=== PATIENT | female | born 1970 | race Two or more races ===

== ENCOUNTER 2024-07-28 09:47 | Inpatient (IN) | payer MEDICAID, OTHER ==
[~2024-07-28] VITALS: Ht 149.9 cm; Wt 60.9 kg
--- NOTE | 2024-07-28 10:07 | ED.PDOC ---
GI ASSESSMENT HPI Comments A 54 YEAR OLD FEMALE PRESENTS TO THE ED WITH COMPLAINT OF EPIGASTRIC PAIN. PATIENT STATES SHE HAS BEEN EXPERIENCING EPIGASTRIC PAIN OFF AND ON FOR THE PAST 1 YEAR WITH HER PAIN WITH NAUSEA RETURNING TODAY. PATIENT DENIES FEVER, CHILLS, SHORTNESS OF BREATH, CHEST PAIN, VOMITING, HEADACHE, OR OTHER COMPLAINTS. NO OTHER SYMPTOMS OR MODIFYING FACTORS AT THIS TIME. PATIENT IS ALERT, ORIENTED X 4, AND HAS STEADY GAIT. Chief Complaint: Abdominal Pain Time Seen by MD: 10:01 Reviewed Notes: Nurses Notes, Medications, Allergies Allergies: Coded Allergies: NO KNOWN ALLERGIES (Unverified , 07/28/24) Information Source: Patient Mode of Arrival: Ambulatory Timing: Months Duration: Intermittent Prehospital treatment: None Quality: Aching, Cramping Vomitus: None Stool: Normal Severity: Moderate Recent: None Recent Hx of: None Pain Location: Epigastric Modifying Factors: Nothing Associated sign and symptoms: Nausea, Abdominal Pain Past Medical History PAST MEDICAL HISTORY: Denies Surgical History: Denies all surgeries RN HEMODIALYSIS CHARGE History: No Pertinent RN HEMODIALYSIS CHARGE History Family History Family History: Reviewed,noncontributory to illness Social History Smoker: Non-Smoker Alcohol: Denies ETOH Use Drugs: Denies Drug Use Lives In: Home Constitutional: denies: chills, diaphoresis, fatigue, fever, malaise, sweats, weakness, others EENTM: denies: blurred vision, double vision, ear bleeding, ear discharge, ear drainage, ear pain, ear ringing, eye pain, eye redness, hearing loss, mouth pain, mouth swelling, nasal discharge, nose bleeding, nose congestion, nose pain, photophobia, tearing, throat pain, throat swelling, voice changes, others Respiratory: denies: cough, hemoptysis, orthopnea, SOB at rest, shortness of breath, SOB with excertion, stridor, wheezing, others Cardiovascular: denies: chest pain, dizzy spells, diaphoresis, Dyspnea on exertion, edema, irregular heart beat, left arm pain, lightheadedness, palpitations, PND, syncope, others Gastrointestinal: reports: abdominal pain (EPIGASTRIC PAIN), nausea; denies: abdomen distended, blood streaked bowels, constipated, diarrhea, dysphagia, difficulty swallowing, hematemesis, melena, poor appetite, poor fluid intake, rectal bleeding, rectal pain, vomiting, others Genitourinary: denies: abnormal vagina bleeding, burning, dyspareunia, dysuria, flank pain, frequency, hematuria, incontinence, pain, , vagina discharge, urgency, others Neurological: denies: dizziness, fainting, headache, left sided numbness, left sided weakness, numbness, paresthesia, pre-existing deficit, right sided numbness, right sided weakness, seizure, speech problems, tingling, tremors, weakness, others Musculoskeletal: denies: back pain, gout, joint pain, joint swelling, muscle pain, muscle stiffness, neck pain, others Integumetry: denies: bruises, change in color, change in hair/nails, dryness, laceration, lesions, lumps, rash, wounds, others Allergic/Immunocompromised: denies: Difficulty Healing, Frequent Infections, Hives, Itching, others Hematologic/Lymphatic: denies: anemia, blood clots, easy bleeding, easy bruising, swollen glands, others Endocrine: denies: excessive hunger, excessive sweating, excessive thirst, excessive urination, flushing, intolerance to cold, intolerance to heat, u nexplained weight gain, unexplained weight loss, others Psychiatric: denies: anxiety, bipolar disorder, depression, hopeless, panic disorder, schizophrenia, sleepless, suicidal, others All Other Systems: Reviewed and Negative Physical Exam General Appearance: Mild Distress, Normal, Other (ANXIETY ) HEENT: Normal ENT Inspection, PERRL/EOMI, Pharynx Normal, TMs Normal Neck: Full Range of Motion, Non-Tender, Normal, Normal Inspection Respiratory: Chest Non-Tender, Lungs Clear, No Accessory Muscle Use, No Respiratory Distress, Normal Breath Sounds Cardiovascular: No Edema, No JVD, No Murmur, No Gallop, Normal Peripheral Pulses, Regular Rate/Rhythm Breast Exam: Deferred Gastrointestinal: Epigastric, Guarding, No Organomegaly, No Pulsatile Mass, Normal Bowel Sounds, Soft, Tenderness (TENDERNESS ON EPIGASTRIC WITH GUARDING, NO REBOUND TENDERNESS. 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 Was a procedure done?: No GI differential Dx Differential Diagnosis: Cholecystitis, Constipation, Gastritis/PUD, Hepatitis, Pancreatitis, UTI X-Ray, Labs, Meds, VS Vital Signs Date Time Temp Pulse Resp B/P (MAP) Pulse Ox O2 Delivery O2 Flow Rate FiO2 07/28/24 12:20 75 18 162/58 07/28/24 12:20 74 18 97 07/28/24 11:23 98.2 75 20 162/58 (92) 99 98.2 07/28/24 11:23 75 20 99 Room Air 07/28/24 10:05 66 07/28/24 10:02 97.4 68 20 112/85 (94) 100 Lab Test 07/28/24 10:10 07/28/24 10:06 Range/Units White Blood Count 8.4 4.4-10.8 10^3/uL Red Blood Count 4.52 4.0-5.20 10^6/uL Hemoglobin 13.5 12.2-16.2 g/dL Hematocrit 40.4 36.0-46.0 % Mean Corpuscular Volume 89.4 80.0-100.0 fL Mean Corpuscular Hemoglobin 29.8 28.0-32.0 pg Mean Corpuscular Hemoglobin Concent 33.4 32.0-36.0 g/dL Red Cell Distribution Width 14.4 H 11.8-14.3 % Platelet Count 235 140-450 10^3/uL Mean Platelet Volume 8.8 6.9-10.8 fL Neutrophils (%) (Auto) 76.2 37.0-80.0 % Lymphocytes (%) (Auto) 19.2 10.0-50.0 % Monocytes (%) (Auto) 3.7 0.0-12.0 % Eosinophils (%) (Auto) 0.3 0.0-7.0 % Basophils (%) (Auto) 0.6 0.0-2.0 % Neutrophils # (Auto) 6.4 1.6-8.6 10 ^3/uL Lymphocytes # (Auto) 1.6 0.4-5.4 10 ^3/uL Monocytes # (Auto) 0.3 0-1.3 10 ^3/uL Eosinophils # (Auto) 0 0-0.8 10 ^3/uL Basophils # (Auto) 0 0-0.2 10 ^3/uL Nucleated Red Blood Cells 0.2 % Sodium Level 139 136-145 mmol/L Potassium Level 3.8 3.5-5.1 mmol/L Chloride Level 105 98-107 mmol/L Carbon Dioxide Level 21 20-31 mmol/L Anion Gap 13 5-15 Blood Urea Nitrogen 10 9-23 mg/dL Creatinine 0.63 0.550-1.02 mg/dL Glomerular Filtration Rate Calc 105 >90 mL/min BUN/Creatinine Ratio 15.9 10.0-20.0 Serum Glucose 147 H 74-106 mg/dL Calcium Level 10.0 8.7-10.4 mg/dL Total Bilirubin 0.4 0.2-1.0 mg/dL Aspartate Amino Transferase (AST) 37 13-40 U/L Alanine Aminotransferase (ALT) 25 7-40 U/L Alkaline Phosphatase 101 46-116 U/L Total Protein 7.4 5.7-8.2 g/dL Albumin 4.8 3.2-4.8 g/dL Lipase 43 12-53 U/L Beta HCG, Quantitative 4.1 1.5-4.2 mIU/mL Urine Color Light-yellow Yellow Urine Clarity Clear Clear Urine pH 7.5 5.0-9.0 Urine Specific [place] 1.019 1.001-1.035 Urine Protein Trace H Negative Urine Ketones Negative Negative Urine Blood Negative Negative /uL Urine Nitrite Negative Negative Urine Bilirubin Negative Negative Urine Urobilinogen Normal Negative mg/dL Urine Leukocyte Esterase Negative Negative /uL Urine RBC 1 0 - 4 /hpf Urine WBC 2 0 - 5 /hpf Urine Squamous Epithelial Cells Few <5 /hpf Urine Bacteria None seen None Seen /hpf Urine Glucose Normal Normal mg/dL Current Medications Medications (Trade) Dose Ordered Sig/Carissa Route Start Time Stop Time Status Last Admin Sodium Chloride 1,000 ml @ 1,000 mls/hr Q1H ONCE IV 07/28/24 11:15 07/28/24 12:14 DC 07/28/24 11:12 ULTRASOUND ABDOMEN LIMITED INDICATION: epigastric pain TECHNIQUE: Multiple real-time sonographic images of the abdomen were obtained. COMPARISON: None FINDINGS: The visualized liver parenchyma appears homogenous . The liver measures 16.1 cm. No discrete hepatic lesion or intrahepatic biliary ductal dilatation is identified. There is a 1.3 cm gallstone seen within the gallbladder neck. There is a 7.2 cm heterogeneous and mildly echogenic nodular structure filling the gallbladder. This may represent inspissated gallbladder sludge versus mass. There is no significant gallbladder wall thickening or pericholecystic fluid. The common kathy t measures 8 mm. The right kidney measures 9.9 cm length. No sonographic evidence of nephrolithiasis or hydronephrosis. Visualized portions of the pancreas appears within normal limits. IMPRESSION: 1. 7.2 cm heterogeneous mildly echogenic nodular structure filling the gallbladder. This may represent inspissated gallbladder sludge versus mass. Further evaluation with CT or MRI abdomen with contrast is recommended. 2. 1.3 cm gallstone in the gallbladder neck. The common duct is mildly prominent measuring 8 mm. HS:Y ATED BY: GERSON LORENZO MD DICTATED DATE/TIME: 07/28/241053 SIGNED BY: GERSON LORENZO MD SIGNED DATE/TIME: 07/28/241053 CC: X-Ray, Labs, Meds, VS Comment LABS ORDERED: CBC, CMP, LIPASE, UA REVIEWED AND INTERPRETED RESULTS: NORMAL IMAGING ORDERED US ABDOMEN INDEPENDENT HISTORIANS: NONE TREATMENTS ORDERED: NS 1 L IV, ZOFRAN 4 MG IV, MORPHINE 2 MG IV PATIENT'S CASE AND RESULTS HAVE BEEN DISCUSSED WITH THE ED ATTENDING PHYSICIAN AND THEY AGREE WITH MY PLAN OF CARE. I HAVE DISCUSSED IMAGING AND LAB RESULTS WITH PATIENT AND HAVE INFORMED HER THAT BASED ON HER IMAGING RESULTS AND PERSISTENT PAIN SHE WILL NEED TO BE ADMITTED FOR FURTHER TREATMENT AND EVALUATION OF HER GALLBLADDER MASS. PATIENT FULLY UNDERSTOOD AND AGREED WITH MY PLAN OF CARE. Images Reviewed?: Images reviewed and evaluated by me Time of 1ST Reevaluation: 12:00 Reevaluation 1ST: Unchanged Patient Education/Counseling: Diagnosis, Treatment Family Education/Counseling: Diagnosis, Treatment Departure 1 Departure Time of Disposition: 12:00 Impression: Primary Impression: Cholelithiasis Qualified Codes: K80.20 - Calculus of gallbladder without cholecystitis without obstruction Additional Impressions: Biliary sludge Gallbladder mass Intractable abdominal pain Disposition: ADMITTED INPATIENT Admit to: Tele Condition: Serious Critical Care Note Critical Care Time?: Yes (45 min-critical care time only) Critical care comment: CRITCAL CARE WAS TIME SPENT PERSONALLY BY ME ON THE FOLLOWING ACTIVITIES: OBTAINING HISTORY OF THE PATIENT. DEVELOPMENT OF TREATMENT PLAN WITH PATIENT. EVALUATION OF PATIENT'S RESPONSE TO TREATMENT. EXAMINATION OF THE PATIENT X 3. INTERPRETATION OF CARDIAC OUTPUT MEASUREMENTS. ORDERING INTERVENTIONS. ORDERING AND REVIEW OF LABORATORY AND RADIOLOGY STUDIES. RE-EVALUATION OF PATIENT'S CONDITIONS 3 TIMES. REVIEW OF OLD CHARTS. DOCUMENTATION OF THE PATIENT HAD A HIGH PROBABILITY OF IMMINENT, LIFE- THREATENING DETERIORATION. CRITICAL CARE TIME EXCLUDES TIME SPENT PERFORMING BILLABLE PROCEDURES. Stability Stability form required: Yes Unstable for transfer: Requires medication, ED Physician Assesment, Possible rapid decline Heart Score Heart Score: Heart Score Response (Comments) Value History N/A 0 EKG N/A 0 Age N/A 0 Risk Factors N/A 0 Troponin N/A 0 Total 0 I personally scribed for LAKESHIA VILLARREAL ([email or web address]) on 07/28/24 at 10:25. Electronically submitted by Justin Mullins ([email or web address]). I personally scribed for LAKESHIA VILLARREAL ([email or web address]) on 07/28/24 at 11:08. Electronically submitted by Justin Mullins ([email or web address]). LAKESHIA VILLARREAL Jul 28, 2024 10:07
[2024-07-28 10:22] LABS: Urine Bacteria None Seen /hpf (None Seen)
--- NOTE | 2024-07-28 10:28 | ECG ---
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
[2024-07-28 10:29] LABS: Urine Blood Negative /uL (Negative); Urine Clarity Clear (Clear); Urine Color Light-Yellow (Yellow); Urine Protein, UAD TRACE (Negative); Urine Specific Gravity 1.019 (1.001-1.035); Urine Urobilinogen Normal (Negative); Urine WBC 2 /hpf (0 - 5); Urine pH 7.5 (5.0-9.0)
[2024-07-28 10:31] LABS: Basophils # (auto) 0 10 ^3/uL (0-0.2); Basophils % (auto) 0.6 % (0.0-2.0); Eosinophils # (auto) 0 10 ^3/uL (0-0.8); Eosinophils % (auto) 0.3 % (0.0-7.0); Hematocrit 40.4 % (36.0-46.0); Hemoglobin 13.5 g/dL (12.2-16.2); Lymphocytes # (auto) 1.6 10 ^3/uL (0.4-5.4); Lymphocytes % (auto) 19.2 % (10.0-50.0); Mean Corpuscular Hemoglobin 29.8 pg (28.0-32.0); Mean Corpuscular Hgb Conc. 33.4 g/dL (32.0-36.0); Mean Corpuscular Volume 89.4 fL (80.0-100.0); Monocytes # (auto) 0.3 10 ^3/uL (0-1.3); Monocytes % (auto) 3.7 % (0.0-12.0); Neutrophils # (auto) 6.4 10 ^3/uL (1.6-8.6); Neutrophils % (auto) 76.2 % (37.0-80.0); Nucleated Red Blood Cells % 0.2 %; Platelet Count (auto) 235 10^3/uL (140-450); Red Blood Cells 4.52 10^6/uL (4.0-5.20); Red Cell Distribution Width 14.4 % (11.8-14.3); White Blood Cell 8.4 10^3/uL (4.4-10.8)
[2024-07-28 10:44] LABS: Alanine Aminotransferase 25 U/L (7-40); Albumin 4.8 g/dL (3.2-4.8); Alkaline Phosphatase 101 U/L (46-116); Anion Gap 13 (5-15); Aspartate Aminotransferase 37 U/L (13-40); BUN/Creatinine Ratio 15.9 (10.0-20.0); Blood Urea Nitrogen 10 mg/dL (9-23); Carbon Dioxide 21 mmol/L (20-31); Chloride 105 mmol/L (98-107); Lipase 43 U/L (12-53); Potassium 3.8 mmol/L (3.5-5.1); Sodium 139 mmol/L (136-145)
[2024-07-28 10:45] LABS: Bilirubin, Total 0.4 mg/dL (0.2-1.0); Total Protein 7.4 g/dL (5.7-8.2)
[2024-07-28 10:52] LABS: Glucose 147 mg/dL (74-106)
--- NOTE | 2024-07-28 10:55 | DVH ---
ULTRASOUND ABDOMEN LIMITED INDICATION: epigastric pain TECHNIQUE: Multiple real-time sonographic images of the abdomen were obtained. COMPARISON: None FINDINGS: The visualized liver parenchyma appears homogenous . The liver measures 16.1 cm. No discrete hep atic lesion or intrahepatic biliary ductal dilatation is identified. There is a 1.3 cm gallstone seen within the gallbladder neck. There is a 7.2 cm heterogeneous and mil dly echogenic nodular structure filling the gallbladder. This may represent inspissated gallbladder sludge versus mass. There is no significant gallbladder wall thickening or pericholecystic fluid. The common duct measures 8 mm. The right kidney measures 9.9 cm length. No sonographic evidence of nephrolithiasis or hydronephros is. Visualized portions of the pancreas appears within normal limits. IMPRESSION: 1. 7.2 cm heterogeneous mildly echogenic nodular structure filling the gallbladder. This may represen t inspissated gallbladder sludge versus mass. Further evaluation with CT or MRI abdomen with contrast is recommended. 2. 1.3 cm gallstone in the gallbladder neck. The common duct is mildly prominent measuring 8 mm. HS:Y
[2024-07-28] MEDS: SODIUM CHLORIDE 0.9% 1,000 ML IV ONE (11:12)
[2024-07-28] MEDS: MORPHINE SULFATE INJ 2 MG/ml SYRG IV ONE (12:20)
[2024-07-28] MEDS: ONDANSETRON HCL 4 MG/2 ML VIAL IV ONE (12:20)
[2024-07-28] MEDS ORDERED: ACETAMINOPHEN 325 MG TAB PO PRN (14:00)
[2024-07-28] MEDS ORDERED: HYDROcodone-ACET 5/325MG TAB PO PRN (14:00)
--- NOTE | 2024-07-28 14:10 | DVHHP2 ---
History of Present Illness History of Present Illness 54y/o F with no significant PMHx p/w epigastric pain, n/v, po intolerance x1 day. since yesterday patient developed sudden onset abdominal pain with po intolerance. she has multiple n/v emesis events, she is unable to count, but denies hematemesis. denies F/C, SOB, chest pain, headaches/neck stiffness. abdominal pain is unremitting, 10/10, sharp, constant with colicky worsening events; pain does radiate to the back. denies ivdu, thc, sick contacts, urinary ssx. Review of Systems Review of Systems as hpi Medications Current Medications Medications Dose Ordered Sig/Carissa Route Start Time Stop Time Status Last Admin Dose Admin Acetaminophen/ Hydrocodone Bitart 1 tab Q4HP PRN PO 07/28/24 14:00 UNV Ondansetron HCl 4 mg Q4HP PRN IV 07/28/24 14:00 UNV Enoxaparin Sodium 40 mg DAILY SC 07/29/24 10:00 UNV Acetaminophen 650 mg Q6HP PRN PO 07/28/24 14:00 UNV Morphine Sulfate 2 mg Q4HPRN PRN IV 07/28/24 14:00 UNV Exam Vital Signs Vital Signs Date Time Temp Pulse Resp B/P (MAP) Pulse Ox O2 Delivery O2 Flow Rate FiO2 07/28/24 12:20 75 18 162/58 07/28/24 12:20 97 07/28/24 11:23 98.2 98.2 07/28/24 11:23 Room Air Exam GEN: Healthy appearing, well-developed, [id number] distress HEENT: NC/AT; dry mucous membranes CV: RRR, no m/r/g. LUNGS: CTAB, no w/r/c. ABD: Epigastrium tender to palpation, [place] sign negative, McBurney point negative, rebound tenderness no guarding or rigidity, no peritoneal signs, abdomen does not appear acute EXT: skin Warm, well perfused. no rashes. No clubbing, cyanosis, or edema. NEURO: Ambulating with no limitations. No focal deficits. Labs/Xrays Labs Test 07/28/24 10:10 07/28/24 10:06 Range/Units White Blood Count 8.4 4.4-10.8 10^3/uL Red Blood Count 4.52 4.0-5.20 10^6/uL Hemoglobin 13.5 12.2-16.2 g/dL Hematocrit 40.4 36.0-46.0 % Mean Corpuscular Volume 89.4 80.0-100.0 fL Mean Corpuscular Hemoglobin 29.8 28.0-32.0 pg Mean Corpuscular Hemoglobin Concent 33.4 32.0-36.0 g/dL Red Cell Distribution Width 14.4 H 11.8-14.3 % Platelet Count 235 140-450 10^3/uL Mean Platelet Volume 8.8 6.9-10.8 fL Neutrophils (%) (Auto) 76.2 37.0-80.0 % Lymphocytes (%) (Auto) 19.2 10.0-50.0 % Monocytes (%) (Auto) 3.7 0.0-12.0 % Eosinophils (%) (Auto) 0.3 0.0-7.0 % Basophils (%) (Auto) 0.6 0.0-2.0 % Neutrophils # (Auto) 6.4 1.6-8.6 10 ^3/uL Lymphocytes # (Auto) 1.6 0.4-5.4 10 ^3/uL Monocytes # (Auto) 0.3 0-1.3 10 ^3/uL Eosinophils # (Auto) 0 0-0.8 10 ^3/uL Basophils # (Auto) 0 0-0.2 10 ^3/uL Nucleated Red Blood Cells 0.2 % Sodium Level 139 136-145 mmol/L Potassium Level 3.8 3.5-5.1 mmol/L Chloride Level 105 98-107 mmol/L Carbon Dioxide Level 21 20-31 mmol/L Anion Gap 13 5-15 Blood Urea Nitrogen 10 9-23 mg/dL Creatinine 0.63 0.550-1.02 mg/dL Glomerular Filtration Rate Calc 105 >90 mL/min BUN/Creatinine Ratio 15.9 10.0-20.0 Serum Glucose 147 H 74-106 mg/dL Calcium Level 10.0 8.7-10.4 mg/dL Total Bilirubin 0.4 0.2-1.0 mg/dL Aspartate Amino Transferase (AST) 37 13-40 U/L Alanine Aminotransferase (ALT) 25 7-40 U/L Alkaline Phosphatase 101 46-116 U/L Total Protein 7.4 5.7-8.2 g/dL Albumin 4.8 3.2-4.8 g/dL Lipase 43 12-53 U/L Urine Color Light-yellow Yellow Urine Clarity Clear Clear Urine pH 7.5 5.0-9.0 Urine Specific [place] 1.019 1.001-1.035 Urine Protein Trace H Negative Urine Ketones Negative Negative Urine Blood Negative Negative /uL Urine Nitrite Negative Negative Urine Bilirubin Negative Negative Urine Urobilinogen Normal Negative mg/dL Urine Leukocyte Esterase Negative Negative /uL Urine RBC 1 0 - 4 /hpf Urine WBC 2 0 - 5 /hpf Urine Squamous Epithelial Cells Few <5 /hpf Urine Bacteria None seen None Seen /hpf Urine Glucose Normal Normal mg/dL Assessment/Plan Assessment/Plan #P.o. intolerance #Intractable abdominal pain #Cholelithiasis - presenting with acute onset abdominal pain associated with nausea and vomiting, p.o. intolerance; Ibrahim patient has epigastrium tender to palpation, abd omen is nonacute - no leukocytosis, no neutrophilia, afebrile vital signs are stable - Lipase negative, - RUQ ultrasound is consistent with gallbladder stones and cholelithiasis; ( 7.2 cm heterogeneous mildly echogenic nodular structure filling the gallbladder. This may represent inspissated gallbladder sludge versus mass. 1.3 cm gallstone in the gallbladder neck. The common duct is mildly prominent measuring 8 mm.) - pending hCG, if negative we will get CT abdomen without con - patient is at high risk of having coli cystitis given current presentation. IV fluids Avoiding antibiotics given no concern for acute cholecystitis Consult surgery P.r.n. analgesia, p.r.n. antiemetics NPO Diet NPO DVT prophylaxis Lovenox GI prophylaxis Protonix IV Med surge Plan discussed with: Patient My Orders Orders - RANDALL GREENE MD Procedure Category Date Status Time Admit ADMIT 07/28/24 Transmitted 13:48 Code Status CODE 07/28/24 Transmitted 13:48 Hydrocodone-Acet PHA 07/28/24 Logged 5/325mg Tab ([place] 14:00 Ondansetron Hcl PHA 07/28/24 Logged (Zofran) 14:00 Enoxaparin Sodium PHA 07/29/24 Logged (Lovenox) 10:00 Complete Blood Count LAB 07/29/24 Verified 04:00 Comprehensive LAB 07/29/24 Verified Metabolic Panel 04:00 Npo (Nothing By DIET 07/28/24 Transmitted Mouth) Diet Dinner Acetaminophen Tablet PHA 07/28/24 Logged (Tylenol Tablet) 14:00 Bedrest With Bathroom MADI 07/28/24 In Process Privileg 13:48 Morphine Sulfate PHA 07/28/24 Logged Injection 14:00 * Surgical Consult CONS 07/28/[address] Ab Pel Wo Con-No CT 07/28/24 Logged Oral Or Iv 13:55 Beta Hcg, Quantitative LAB 07/28/24 Logged 13:55 Date of Service: Jul 28, 2024 Billing Provider: RANDALL GREENE MD Common Visit Codes: 25099-[id number] INP/OBS CARE (HIGH) RANDALL GREENE MD Jul 28, 2024 14:10
[2024-07-28 15:00] VITALS: BP 151/80; PULSE 65; RESP 21; TEMP 98.4; O2SAT 99
[2024-07-28 15:10] VITALS: RESP 18; O2SAT 97
[2024-07-28] MEDS: ONDANSETRON HCL 4 MG/2 ML VIAL IV PRN (15:43)
[2024-07-28] MEDS: MORPHINE SULFATE INJ 2 MG/ml SYRG IV PRN (15:43)
--- NOTE | 2024-07-28 15:54 | DVH ---
Exam: CT CT AB PEL WITH IV CON ONLY History: abdominal pain Comparison Study: None available at time of dictation. Contrast: Type of contrast: Omnipaque 300 Contrast injected: 100 mL Contrast wasted: 0 TECHNIQUE: A digital rewinder image was obtained. During the uneventful, intravenous administration of c ontrast material, multislice data acquisition was obtained through the abdomen and pelvis. The data s et was subsequently reconstructed into axial images. Images were reviewed on a work station using a c ombination of axial and multiplanar using a variety of window levels and settings. Radiation Dose Information: CT Dose: CTDI volume is 5.38 mGy. Dose-length product is 258.45 mGy*cm FINDINGS: Lung Bases: Bibasilar pulmonary fibrosis may be chronic there are no prior studies for comparison. N ormal heart size. No pleural or pericardial effusion. Liver: The liver is normal in size. No focal lesions. Normal hepatic vascular enhancement. Gallbladder and Biliary Tree: Findings worrisome for 2 cm gallstone in the neck of the gallbladder. T his may be correlated with right upper quadrant ultrasound. Spleen: Unremarkable Pancreas: The pancreas is normal in appearance without focal lesions or abnormal enhancement. Adrenal Glands: Unremarkable Kidneys: Kidneys demonstrate normal symmetric enhancement without focal lesions, calculi or hydroneph rosis. Bladder: Unremarkable Bowel: The stomach is grossly normal in appearance. Small bowel and colon are normal in caliber and d istribution. Mucosal thickening of the transverse and left colon correlate patient's clinical descend ing for possible colitis. The appendix is not visualized; however, no secondary findings of acute ap pendicitis identified. Ascites: Absent Lymphadenopathy: No mesenteric, retroperitoneal or periportal lymphadenopathy. Abdominal Wall and Mesentery: Unremarkable. Vasculature: The visualized abdominal aorta is normal in size and caliber. Abdominal and pelvic vess els demonstrate normal enhancement. Pelvic Organs: Unremarkable Musculoskeletal: No aggressive focal bony lesions, acute fractures or dislocation. Soft tissues: Unremarkable. IMPRESSION: 1. Mucosal thickening of the transverse and left colon. Correlate patient's clinical cysts setting fo r possible colitis. 2. Probable cholelithiasis. 3. All CT scans at this medical facility are performed using dose modulation techniques as appropriate to a performed exam including the following: Automated exposure control was utilized; adjustment of t he MA and/or KV according to patient size; and use of iterative reconstruction technique.
[2024-07-28 17:09] VITALS: BP 144/79; PULSE 68; RESP 20; TEMP 98.9; O2SAT 99
[2024-07-28 20:00] VITALS: PULSE 87; RESP 20; O2SAT 95
[2024-07-28 20:44] VITALS: BP 133/64; PULSE 87; RESP 20; TEMP 98.4; O2SAT 95
[2024-07-29] VITALS (8 sets, daily range): BP systolic 92–123; BP diastolic 63–82; PULSE 76–97; RESP 16–20; TEMP 97.1–98.7; O2SAT 95–98
[2024-07-29 05:46] LABS: Basophils # (auto) 0.1 10 ^3/uL (0-0.2); Basophils % (auto) 0.6 % (0.0-2.0); Eosinophils # (auto) 0 10 ^3/uL (0-0.8); Eosinophils % (auto) 0.2 % (0.0-7.0); Hematocrit 38.5 % (36.0-46.0); Lymphocytes # (auto) 2.5 10 ^3/uL (0.4-5.4); Mean Corpuscular Hemoglobin 30.1 pg (28.0-32.0); Mean Corpuscular Hgb Conc. 33.9 g/dL (32.0-36.0); Mean Corpuscular Volume 88.7 fL (80.0-100.0); Monocytes # (auto) 0.7 10 ^3/uL (0-1.3); Monocytes % (auto) 7.6 % (0.0-12.0); Neutrophils # (auto) 6.2 10 ^3/uL (1.6-8.6); Neutrophils % (auto) 65.6 % (37.0-80.0); Platelet Count (auto) 240 10^3/uL (140-450); Red Blood Cells 4.34 10^6/uL (4.0-5.20); Red Cell Distribution Width 14.2 % (11.8-14.3); White Blood Cell 9.4 10^3/uL (4.4-10.8)
[2024-07-29 06:01] LABS: Alanine Aminotransferase 20 U/L (7-40); Albumin 4.5 g/dL (3.2-4.8); Alkaline Phosphatase 83 U/L (46-116); Anion Gap 11 (5-15); Aspartate Aminotransferase 24 U/L (13-40); BUN/Creatinine Ratio 10.8 (10.0-20.0); Calcium 10.1 mg/dL (8.7-10.4); Carbon Dioxide 23 mmol/L (20-31); Chloride 104 mmol/L (98-107); Potassium 3.6 mmol/L (3.5-5.1); Sodium 138 mmol/L (136-145)
[2024-07-29 06:02] LABS: Bilirubin, Total 0.7 mg/dL (0.2-1.0); Blood Urea Nitrogen 7 mg/dL (9-23); Glucose 111 mg/dL (74-106)
[2024-07-29 09:27] LABS: INR 1.03 (0.9-1.15); Partial Thromboplastin Time 29.3 SEC (24.5-34.5); Prothrombin Time 10.9 sec (9.3-11.8)
[2024-07-29] MEDS ORDERED: ENOXAPARIN SOD 40 MG/0.4 ML SYRINGE SC SCH (10:00)
--- NOTE | 2024-07-29 11:24 | DVH ---
CLINICAL INFORMATION: Gallbladder mass. TECHNIQUE: Multisequence multiplanar MRI images of the abdomen were obtained without IV contrast. Enoc hendrix T2-weighted MRCP images were obtained. 3D MRCP images were created at an independent workstation with concurrent physician supervision. COMPARISON: CT dated 07/28/2024 and ultrasound dated 07/28/2024. FINDINGS: T2 hypointense gallbladder mass, not optimally evaluated without IV contrast. The mass exte nds up to 5.6 x 2.9 cm, filling most of the gallbladder. At the gallbladder neck, there is prominent ovoid T2 hypointense signal, possible gallstone measuring up to 1.8 cm, may be contiguous with the ma ss. Small T2 hypointense foci adjacent to the mass at the gallbladder fundus, possibly small cystic c omponents, although not well evaluated on noncontrast enhanced exam. Common bile duct measures up to 7 mm in diameter, at the upper limits of normal. No filling defect or stricture identified in the co mmon bile duct on MRCP images. T2 hyperintense structure in the right hepatic lobe measuring up to 1 cm, likely cyst or hemangioma. Not well evaluated on noncontrast enhanced exam. The spleen, pancreas, adrenal glands, and kidneys appear unremarkable. No abdominal aortic aneurysm. No other significant abnormality identified. IMPRESSION: 1. Masslike structure in the gallbladder filling most of the gallbladder lumen, may be due to neoplas m or prominent sludge ball. Limited evaluation on noncontrast enhanced exam. Correlate with clinical findings. Possible gallstone or calcified component of the mass at the gallbladder neck. Possible cy stic component at the gallbladder fundus. 2. Common bile duct measures at the upper limits of normal in diameter with no filling defect or stri cture identified in the common bile duct. 3. Additional findings as detailed above.
--- NOTE | 2024-07-29 13:02 | DVHOP2 ---
Operative Report - 2 Report Details Date: 07/29/24 Preop Diagnosis: Acute cholecystitis Postop Diagnosis: Same Surgeon: Jorge Del Angel MD Spice Room Worker: None Anesthesiologist: Bj Patel CRNA Anesthesia: General, Local Drains: None Consent: The patient was informed of the risks and benefits of the procedure. These include but are not limited to complications of anesthesia, postoperative infection, incomplete relief of symptoms, recurrence of symptoms, damage to blood vessels, nerves and tendons, deep venous thrombosis, pulmonary embolism and possible need for repeat surgery in the future. Complications: None Estimated Blood Loss: 50 mL Fluids: 500 mL Name of Procedure Performed Laparoscopic cholecystectomy Procedure Details Procedure Details: After induction of general anesthesia, patient's abdomen was prepped and draped in standard surgical fashion. A small infraumbilical incision was made and this incision was taken through the abdominal wall down to the fascia which was opened sharply. Peritoneum was then bluntly divided gaining access to the intra-abdominal cavity. Interrupted 0 Vicryl sutures were placed through the fascial incision and using an open technique, Alex trocar was introduced and secured using the Vicryl sutures. Abdomen was insufflated to 15 mmHg and camera was inserted. Visual examination of the intestine under the fascial incision appeared normal without injury. Under direct visualization, a 5 mm bladeless trocar was placed in the subxiphoid region and two additional 5 mm bladeless trocars were placed in the right upper quadrant all under direct visualization. Examination of the right upper quadrant revealed a very edematous gallbladder. There was also moderate amount of adhesion bands involving the liver to the peritoneum. These were all taken down freeing up the right lobe of the liver. Gallbladder was then grasped and retracted in a cephalad direction as the infundibulum was retracted laterally. Careful blunt dissection was performed to identify the cystic duct. This was clipped and divided using Endoclips without complication. Cystic artery was located just next to the cystic duct and this was also clipped and divided using Endoclips without complication. Gallbladder was then removed from the liver bed using electrocautery and there was no bile or stone spillage during the maneuver. Gallbladder was then removed from the abdominal cavity using an endo pouch bag and sent off the surgical field. Abdomen was then re-insufflated and right upper quadrant was then well irrigated until fluid was clear. Trocars were then removed under direct visualization as the abdomen was deflated. Additional interrupted 0 Vicryl sutures were placed through the infraumbilical fascial incision and all sutures were tied down closing off the infraumbilical fascia. Surgical sites were irrigated injected with 20 mL of 1% lidocaine with epinephrine. Skin incisions were closed using 4-0 Monocryl sutures in subcuticular fashion. Surgical site was cleaned and dried dressings were applied. Sponge, needle, instrument count at the end of the case were reported to be correct by the nursing staff. Patient tolerated procedure well and was awakened, extubated and transferred to recovery in stable condition. Specimen: Gallbladder Condition Stable Disposition Still a Patient JORGE DEL ANGEL MD Jul 29, 2024 13:02
--- NOTE | 2024-07-29 13:23 | DVHINCON2 ---
Date of service: Jul 29, 2024 History of Present Illness 54-year-old female complaining of epigastric abdominal pain associated with nausea or vomiting but no fevers or Past Medical History None Past Surgical History None Family History: Patient reports no known family medical history. Family History Noncontributory Social History No alcohol, tobacco, IV drug use Allergies: Coded Allergies: NO KNOWN ALLERGIES (Unverified , 07/28/24) Current Medications Current Medications Medications (Trade) Dose Ordered Sig/Carissa Route PRN Reason Start Time Stop Time Status Last Admin Acetaminophen/ Hydrocodone Bitart ([place] 5/325MG Tab) 1 tab Q4HP PRN PO MODERATE PAIN (4-6 PAIN SCALE) 07/28/24 14:00 Ondansetron HCl (Zofran) 4 mg Q4HP PRN IV NAUSEA / VOMITING 07/28/24 14:00 07/28/24 15:43 Enoxaparin Sodium (Lovenox) 40 mg DAILY SC 07/29/24 10:00 07/29/24 09:05 DC Acetaminophen (Tylenol Tablet) 650 mg Q6HP PRN PO PAIN SCALE 1-3 OR TEMP>100.4 07/28/24 14:00 Morphine Sulfate 2 mg Q4HPRN PRN IV SEVERE PAIN (7-10 PAIN SCALE) 07/28/24 14:00 07/28/24 15:43 Vital Signs Vital Signs Date Time Temp Pulse Resp B/P (MAP) Pulse Ox O2 Delivery O2 Flow Rate FiO2 07/29/24 08:41 97.1 89 18 117/82 (94) 95 97.1 07/29/24 08:02 Room Air* 0 21 Physical Exam GEN: Age-appropriate female in no acute distress. Alert. HEENT: Normocephalic atraumatic. Moist mucous membranes. Anicteric sclerae. CV: RRR Respiratory: CTAB ABD: Right upper quadrant epigastric tenderness to palpation with minimal guarding. Nondistended. Abdominal ultrasound: 7.2 cm heterogeneously mildly echogenic nodular structure filling the gallbladder which may represent gallbladder sludge versus mass. 1.3 cm gallstone in the gallbladder neck with common bile duct at [address] of the abdomen and pelvis with IV contrast: Probable cholelithiasis in the neck of the gallbladder. Mucosal thickening of the transverse and left colon with possible colitis. MRCP shows a masslike structure in the gallbladder measuring 5.6 x 2.9 cm filling most of the gallbladder which may be due to a neoplasm or prominent sludge ball. Possible gallstone or calcified component of the mass of the neck of the gallbladder. Common bile duct at upper limits of normal with no filling defects or stricture of the common bile duct. Labs/Diagnostic Data Labs Test 07/29/24 05:11 07/28/24 10:10 07/28/24 10:06 Range/Units White Blood Count 9.4 4.4-10.8 10^3/uL Red Blood Count 4.34 4.0-5.20 10^6/uL Hemoglobin 13.0 12.2-16.2 g/dL Hematocrit 38.5 36.0-46.0 % Mean Corpuscular Volume 88.7 80.0-100.0 fL Mean Corpuscular Hemoglobin 30.1 28.0-32.0 pg Mean Corpuscular Hemoglobin Concent 33.9 32.0-36.0 g/dL Red Cell Distribution Width 14.2 11.8-14.3 % Platelet Count 240 140-450 10^3/uL Mean Platelet Volume 8.5 6.9-10.8 fL Neutrophils (%) (Auto) 65.6 37.0-80.0 % Lymphocytes (%) (Auto) 26.0 10.0-50.0 % Monocytes (%) (Auto) 7.6 0.0-12.0 % Eosinophils (%) (Auto) 0.2 0.0-7.0 % Basophils (%) (Auto) 0.6 0.0-2.0 % Neutrophils # (Auto) 6.2 1.6-8.6 10 ^3/uL Lymphocytes # (Auto) 2.5 0.4-5.4 10 ^3/uL Monocytes # (Auto) 0.7 0-1.3 10 ^3/uL Eosinophils # (Auto) 0 0-0.8 10 ^3/uL Basophils # (Auto) 0.1 0-0.2 10 ^3/uL Nucleated Red Blood Cells 0.0 % Prothrombin Time 10.9 9.3-11.8 sec Prothrombin Time INR 1.03 0.9-1.15 Activated Partial Thromboplast Time 29.3 24.5-34.5 SEC Sodium Level 138 136-145 mmol/L Potassium Level 3.6 3.5-5.1 mmol/L Chloride Level 104 98-107 mmol/L Carbon Dioxide Level 23 20-31 mmol/L Anion Gap 11 5-15 Blood Urea Nitrogen 7 L 9-23 mg/dL Creatinine 0.65 0.550-1.02 mg/dL Glomerular Filtration Rate Calc 105 >90 mL/min BUN/Creatinine Ratio 10.8 10.0-20.0 Serum Glucose 111 H 74-106 mg/dL Calcium Level 10.1 8.7-10.4 mg/dL Total Bilirubin 0.7 0.2-1.0 mg/dL Aspartate Amino Transferase (AST) 24 13-40 U/L Alanine Aminotransferase (ALT) 20 7-40 U/L Alkaline Phosphatase 83 46-116 U/L Total Protein 7.0 5.7-8.2 g/dL Albumin 4.5 3.2-4.8 g/dL Lipase 43 12-53 U/L Beta HCG, Quantitative 4.1 1.5-4.2 mIU/mL Urine Color Light-yellow Yellow Urine Clarity Clear Clear Urine pH 7.5 5.0-9.0 Urine Specific [place] 1.019 1.001-1.035 Urine Protein Trace H Negative Urine Ketones Negative Negative Urine Blood Negative Negative /uL Urine Nitrite Negative Negative Urine Bilirubin Negative Negative Urine Urobilinogen Normal Negative mg/dL Urine Leukocyte Esterase Negative Negative /uL Urine RBC 1 0 - 4 /hpf Urine WBC 2 0 - 5 /hpf Urine Squamous Epithelial Cells Few <5 /hpf Urine Bacteria None seen None Seen /hpf Urine Glucose Normal Normal mg/dL Assessment 1. Cholecystitis with possible gallbladder neoplasm Plan/Recommendation 1. GI consultation for possible colitis 2. Patient may benefit from higher level of care for possible gallbladder neoplasm. Plan discussed with: Patient JORGE HDEZ MD Jul 29, 2024 13:23
--- NOTE | 2024-07-29 16:40 | DVHPN2 ---
Subjective Feels much better. Some pain but a lot less than yesterday Reviewed: Care Plan, H&P, Labs, Medications, Previous Orders, Radiology, Other (Consultants) Changes from previous H/P or p: No Changes Objective Vitals Vital Signs Date Time Temp Pulse Resp B/P (MAP) Pulse Ox O2 Delivery O2 Flow Rate FiO2 07/29/24 13:25 97.9 84 20 123/70 (87) 98 97.9 07/29/24 08:02 Room Air* 0 21 Intake/Output Intake and Output 07/29/24 07:00 Intake Total 1000 ml Balance 1000 ml Intake Oral 0 ml IV Total 1000 ml # Voids 7 # Bowel Movements 4 General Appearance: Alert, Oriented X3, Cooperative, No acute distress HEENT: Atraumatic Lungs: Clear to auscultation Cardiovascular: Regular rate Abdomen: Soft, No tenderness Medications Current Medications Medications Dose Ordered Sig/Carissa Route Start Time Stop Time Status Last Admin Dose Admin Acetaminophen/ Hydrocodone Bitart 1 tab Q4HP PRN PO 07/28/24 14:00 Ondansetron HCl 4 mg Q4HP PRN IV 07/28/24 14:00 07/28/24 15:43 4 MG Acetaminophen 650 mg Q6HP PRN PO 07/28/24 14:00 Morphine Sulfate 2 mg Q4HPRN PRN IV 07/28/24 14:00 07/28/24 15:43 2 MG Ceftriaxone Sodium 50 ml @ 100 mls/hr DAILY@09 IV 07/30/24 09:00 Metronidazole 100 ml @ 100 mls/hr Q8HR IV 07/29/24 22:00 Sodium Chloride 1,000 ml @ 100 mls/hr Q10H IV 07/29/24 15:30 Laboratory Results Laboratory Tests 07/29/24 05:11 Chemistry Test 07/29/24 05:11 Albumin 4.5 g/dL (3.2-4.8) Calcium Level 10.1 mg/dL (8.7-10.4) Total Protein 7.0 g/dL (5.7-8.2) Coagulation Test 07/29/24 05:11 Prothrombin Time 10.9 sec (9.3-11.8) Prothrombin Time INR 1.03 (0.9-1.15) Activated Partial Thromboplast Time 29.3 SEC (24.5-34.5) LFT Test 07/29/24 05:11 Alanine Aminotransferase (ALT) 20 U/L (7-40) Alkaline Phosphatase 83 U/L (46-116) Aspartate Amino Transferase (AST) 24 U/L (13-40) Total Bilirubin 0.7 mg/dL (0.2-1.0) Urinalysis Test 07/28/24 10:06 Urine Color Light-yellow (Yellow) Urine Clarity Clear (Clear) Urine pH 7.5 (5.0-9.0) Urine Specific [place] 1.019 (1.001-1.035) Urine Protein Trace (Negative) H Urine Ketones Negative (Negative) Urine Blood Negative /uL (Negative) Urine Nitrite Negative (Negative) Urine Bilirubin Negative (Negative) Urine Urobilinogen Normal mg/dL (Negative) Urine Leukocyte Esterase Negative /uL (Negative) Urine RBC 1 /hpf (0 - 4) Urine WBC 2 /hpf (0 - 5) Urine Squamous Epithelial Cells Few /hpf (<5) Urine Bacteria None seen /hpf (None Seen) Urine Glucose Normal mg/dL (Normal) Assessment/Plan Assessment/Plan Abdominal pain in the midepigastric area/better Unclear whether gallbladder mass and cholelithiasis or large gallbladder stone/sludge Colitis Plan: Discussed with Dr. Villaseñor. He will signed off to Dr. Rosado tomorrow for re- evaluation for surgery at this facility or whether she needs a higher level of care. At the same time we will start IV antibiotics. We will check alpha- fetoprotein. CEA. Further plan per orders Plan discussed with: Patient, Other (Sister at bedside) My Orders Orders - ANKUSH ERAZO MD Procedure Category Date Status Time Ceftriaxone 1gm/50ml PHA 07/30/24 In Process D5w (Rocephin) 09:00 Metronidazole PHA 07/29/24 In Process 500mg/100ml (Flagyl 22:00 Sodium Chloride 0.9% PHA 07/29/24 In Process 15:30 Afp Serum Tumor Marker LAB 07/29/24 In Process 15:22 Complete Blood Count LAB 07/30/24 Verified 06:00 Comprehensive LAB 07/30/24 Verified Metabolic Panel 06:00 Lipase LAB 07/30/24 Verified 06:00 Amylase LAB 07/30/24 Verified 06:00 Date of Service: Jul 29, 2024 Billing Provider: ANKUSH ERAZO MD Common Visit Codes: [id number] INP/OBS CARE(HIGH) ANKUSH ERAZO MD Jul 29, 2024 16:40
[2024-07-29 17:28] LABS: Erythrocyte Sedimentation Rate 10 mm/hr (0-20)
[2024-07-29] MEDS: cefTRIAXone 1GM/50ML D5W 50 ML IV ONE (18:10)
[2024-07-29] MEDS: SODIUM CHLORIDE 0.9% 1,000 ML IV SCH (18:10)
--- NOTE | 2024-07-29 18:22 | DVHINCON2 ---
Date of service: Jul 29, [address] Del Angel Reason for Consultation Abdominal pain and possible colitis on imaging History of Present Illness The patient is a 54-year-old female with no significant past medical history, past surgical history only tubal ligation admitted with symptoms of abdominal pain, nausea and vomiting, similar to previous episodes she has had in the past and which she also had loose stools. Imaging tests suggest gallbladder mass versus sludge ball, and thickening of the transverse and descending colon consistent with possible colitis. Patient denies hematochezia, diarrhea, prior history of colitis or colonoscopy. Patient denies any changes in her overall health and states that she is healthy. She denies antibiotic use or recent travel history. She denies any ill contacts, fevers or chills. GI consultation was obtained for evaluation given with findings on CT scan. Past Medical History As above Past Surgical History As above Family History: Patient reports no known family medical history. Family History Denies gastrointestinal diseases or malignancies Allergies: Coded Allergies: NO KNOWN ALLERGIES (Unverified , 07/28/24) Current Medications Current Medications Medications (Trade) Dose Ordered Sig/Carissa Route PRN Reason Start Time Stop Time Status Last Admin Enoxaparin Sodium (Lovenox) 40 mg DAILY SC 07/29/24 10:00 07/29/24 09:05 DC Ceftriaxone Sodium 50 ml @ 100 mls/hr DAILY@09 IV 07/30/24 09:00 Metronidazole 100 ml @ 100 mls/hr Q8HR IV 07/29/24 22:00 Sodium Chloride 1,000 ml @ 100 mls/hr Q10H IV 07/29/24 15:30 07/29/24 18:10 Review of Systems Constitutional: No weight changes no fevers or chills Head: No neck pain, or headaches Cardiac: No chest pain or palpitations Pulmonary: No cough wheeze or shortness of breath Endocrine: No diabetes or hypothyroidism : No dysuria hematuria GI: See HPI Psych: No psychosis and depression or anxiety Skin: No rashes bruises or pruritus Heme: No anemia or malignancy Neuro: No stroke or seizure rheumatological: No arthralgias myalgias Vital Signs Vital Signs Date Time Temp Pulse Resp B/P (MAP) Pulse Ox O2 Delivery O2 Flow Rate FiO2 07/29/24 16:52 97.8 87 16 105/74 (84) 95 97.8 07/29/24 08:02 Room Air* 0 21 Physical Exam General: Alert and oriented well-developed female lying in bed no distress HEENT: Normocephalic atraumatic extraocular muscles are intact, pupils equal round react light accommodating Heart: Regular rate and rhythm Abdomen: Soft mild epigastric tenderness to palpation nondistended normoactive bowel sounds Extremity: No clubbing cyanosis edema Neuro: Cranial nerves 2-12 grossly intact Labs/Diagnostic Data Labs Test 07/29/24 17:20 07/29/24 05:11 07/28/24 10:10 07/28/24 10:06 Range/Units White Blood Count 9.4 4.4-10.8 10^3/uL Red Blood Count 4.34 4.0-5.20 10^6/uL Hemoglobin 13.0 12.2-16.2 g/dL Hematocrit 38.5 36.0-46.0 % Mean Corpuscular Volume 88.7 80.0-100.0 fL Mean Corpuscular Hemoglobin 30.1 28.0-32.0 pg Mean Corpuscular Hemoglobin Concent 33.9 32.0-36.0 g/dL Red Cell Distribution Width 14.2 11.8-14.3 % Platelet Count 240 140-450 10^3/uL Mean Platelet Volume 8.5 6.9-10.8 fL Neutrophils (%) (Auto) 65.6 37.0-80.0 % Lymphocytes (%) (Auto) 26.0 10.0-50.0 % Monocytes (%) (Auto) 7.6 0.0-12.0 % Eosinophils (%) (Auto) 0.2 0.0-7.0 % Basophils (%) (Auto) 0.6 0.0-2.0 % Neutrophils # (Auto) 6.2 1.6-8.6 10 ^3/uL Lymphocytes # (Auto) 2.5 0.4-5.4 10 ^3/uL Monocytes # (Auto) 0.7 0-1.3 10 ^3/uL Eosinophils # (Auto) 0 0-0.8 10 ^3/uL Basophils # (Auto) 0.1 0-0.2 10 ^3/uL Nucleated Red Blood Cells 0.0 % Erythrocyte Sedimentation Rate 10 0-20 mm/hr Prothrombin Time 10.9 9.3-11.8 sec Prothrombin Time INR 1.03 0.9-1.15 Activated Partial Thromboplast Time 29.3 24.5-34.5 SEC Sodium Level 138 136-145 mmol/L Potassium Level 3.6 3.5-5.1 mmol/L Chloride Level 104 98-107 mmol/L Carbon Dioxide Level 23 20-31 mmol/L Anion Gap 11 5-15 Blood Urea Nitrogen 7 L 9-23 mg/dL Creatinine 0.65 0.550-1.02 mg/dL Glomerular Filtration Rate Calc 105 >90 mL/min BUN/Creatinine Ratio 10.8 10.0-20.0 Serum Glucose 111 H 74-106 mg/dL Calcium Level 10.1 8.7-10.4 mg/dL Total Bilirubin 0.7 0.2-1.0 mg/dL Aspartate Amino Transferase (AST) 24 13-40 U/L Alanine Aminotransferase (ALT) 20 7-40 U/L Alkaline Phosphatase 83 46-116 U/L C-Reactive Protein High Sensitivity 0.89 <1.0 mg/dL Total Protein 7.0 5.7-8.2 g/dL Albumin 4.5 3.2-4.8 g/dL Lipase 43 12-53 U/L Beta HCG, Quantitative 4.1 1.5-4.2 mIU/mL Urine Color Light-yellow Yellow Urine Clarity Clear Clear Urine pH 7.5 5.0-9.0 Urine Specific [place] 1.019 1.001-1.035 Urine Protein Trace H Negative Urine Ketones Negative Negative Urine Blood Negative Negative /uL Urine Nitrite Negative Negative Urine Bilirubin Negative Negative Urine Urobilinogen Normal Negative mg/dL Urine Leukocyte Esterase Negative Negative /uL Urine RBC 1 0 - 4 /hpf Urine WBC 2 0 - 5 /hpf Urine Squamous Epithelial Cells Few <5 /hpf Urine Bacteria None seen None Seen /hpf Urine Glucose Normal Normal mg/dL MRCP: IMPRESSION: 1. Masslike structure in the gallbladder filling most of the gallbladder lumen, may be due to neoplasm or prominent sludge ball. Limited evaluation on noncontrast enhanced exam. Correlate with clinical findings. Possible gallstone or calcified component of the mass at the gallbladder neck. Possible cystic component at the gallbladder fundus. 2. Common bile duct measures at the upper limits of normal in diameter with no filling defect or stricture identified in the common bile duct. 3. Additional findings as detailed above. CT scan abdomen and pelvis 1. Mucosal thickening of the transverse and left colon. Correlate patient's clinical cysts setting for possible colitis. 2. Probable cholelithiasis. Assessment Abdominal pain Findings consistent with biliary sludge versus gallbladder mass Colitis on CT scan but no clinical findings of colitis such as diarrhea hematochezia, or prior history Problems(with codes): (1) Cholelithiasis (2) Biliary sludge (3) Gallbladder mass (4) Intractable abdominal pain Plan/Recommendation 1. Hold off on colonoscopy at this time, consider colonoscopy if the patient has symptoms of diarrhea or other findings however in the absence of leukocytosis diarrhea colonoscopy not necessary at this time 2. Pain control 3. Agree with CEA and alpha fetoprotein, also [place] 19 nine should be ordered 4. Surgical evaluation for possible cholecystectomy 5. Follow labs 6. We will follow 7. Diet as tolerated Plan discussed with: Patient, Other EDWARD FOWLER MD Jul 29, 2024 18:22
[2024-07-29] MEDS: metroNIDAZOLE 500MG/100ML 100 ML IV SCH (21:02)
[2024-07-30] VITALS (8 sets, daily range): BP systolic 81–120; BP diastolic 47–72; PULSE 62–73; RESP 16–18; TEMP 97.6–98.2; O2SAT 96–100
[2024-07-30 07:05] LABS: Basophils # (auto) 0.1 10 ^3/uL (0-0.2); Basophils % (auto) 1.1 % (0.0-2.0); Eosinophils # (auto) 0.1 10 ^3/uL (0-0.8); Eosinophils % (auto) 1.2 % (0.0-7.0); Hematocrit 36.6 % (36.0-46.0); Hemoglobin 12.4 g/dL (12.2-16.2); Lymphocytes # (auto) 2.3 10 ^3/uL (0.4-5.4); Mean Corpuscular Hemoglobin 30.5 pg (28.0-32.0); Mean Corpuscular Hgb Conc. 33.9 g/dL (32.0-36.0); Mean Corpuscular Volume 89.8 fL (80.0-100.0); Monocytes # (auto) 0.4 10 ^3/uL (0-1.3); Monocytes % (auto) 8.2 % (0.0-12.0); Neutrophils # (auto) 2.5 10 ^3/uL (1.6-8.6); Neutrophils % (auto) 46.5 % (37.0-80.0); Platelet Count (auto) 209 10^3/uL (140-450); Red Blood Cells 4.08 10^6/uL (4.0-5.20); Red Cell Distribution Width 14.5 % (11.8-14.3); White Blood Cell 5.4 10^3/uL (4.4-10.8)
[2024-07-30 07:23] LABS: Alanine Aminotransferase 15 U/L (7-40); Albumin 3.9 g/dL (3.2-4.8); Alkaline Phosphatase 72 U/L (46-116); Amylase 61 U/L (30-118); Anion Gap 7 (5-15); Aspartate Aminotransferase 16 U/L (13-40); BUN/Creatinine Ratio 15.1 (10.0-20.0); Bilirubin, Total 0.7 mg/dL (0.2-1.0); Blood Urea Nitrogen 11 mg/dL (9-23); Calcium 9.7 mg/dL (8.7-10.4); Carbon Dioxide 26 mmol/L (20-31); Chloride 107 mmol/L (98-107); Glucose 93 mg/dL (74-106); Potassium 4.3 mmol/L (3.5-5.1); Sodium 140 mmol/L (136-145); Total Protein 6.3 g/dL (5.7-8.2)
[2024-07-30 07:53] LABS: Lipase 36 U/L (12-53)
[2024-07-30] MEDS: cefTRIAXone 1GM/50ML D5W 50 ML IV SCH (09:45)
--- NOTE | 2024-07-30 12:32 | DVHPN2 ---
Progress Note Date Seen: Jul 30, 2024 Medical Necessity Reason Pt with a Central, PICC or Fol: No Objective vital signs Vital Sign Date Time Temp Pulse Resp B/P (MAP) Pulse Ox O2 Delivery O2 Flow Rate FiO2 07/30/24 08:48 98.2 70 16 96/57 (70) 96 98.2 07/30/24 08:10 Room Air* 0 21 Total Intake and Output 07/29/24 07/29/24 07/30/24 15:00 23:00 07:00 Intake Total 0 ml 500 ml 1220 ml Balance 0 ml 500 ml 1220 ml medications Current Medications Medications Dose Ordered Sig/Carissa Route Start Time Stop Time Status Last Admin Dose Admin Acetaminophen/ Hydrocodone Bitart 1 tab Q4HP PRN PO 07/28/24 14:00 Ondansetron HCl 4 mg Q4HP PRN IV 07/28/24 14:00 07/28/24 15:43 4 MG Acetaminophen 650 mg Q6HP PRN PO 07/28/24 14:00 Morphine Sulfate 2 mg Q4HPRN PRN IV 07/28/24 14:00 07/28/24 15:43 2 MG Ceftriaxone Sodium 50 ml @ 100 mls/hr DAILY@09 IV 07/30/24 09:00 07/30/24 09:45 100 MLS/HR Metronidazole 100 ml @ 100 mls/hr Q8HR IV 07/29/24 22:00 07/30/24 05:08 100 MLS/HR Sodium Chloride 1,000 ml @ 100 mls/hr Q10H IV 07/29/24 15:30 07/30/24 05:08 100 MLS/HR laboratory and microbiology Laboratory Tests 07/30/24 05:49 Test 07/30/24 05:49 Range/Units Serum Glucose 93 74-106 mg/dL Problem List/Assessment/Plan Problem List/Assessment/Plan 07/30/24 PATIENT REQUESTED A SECOND SURGICAL OPINION: SHE IS A 54 YEAR OLD FEMALE PREVIOUSLY HEALTHY PRESENTING WITH WHAT IS THE THIRD EPISODE OF RIGHT UPPER QUADRANT PAIN, HAS A LARGE "MASS LIKE" STRUCTURE FILLING HER GALLBLADDER. EXPLAINED TO PATIENT THAT IT COULD BE A MALIGNANCY IN WHICH CASE SHE WOULD HAVE TO HAVE A DEFINITIVE OPERATION ELSEWHERE, HOWEVER HER LABS ARE NORMAL THE LIVER IS WITHOUT EVIDENCE OF METS OR MASS PENETRATING THE gb WALL, WILL PROCEED WITH LAPAROSCOPIC POSSIBLY OPEN CHOLECYSTECTOMY. OPERATION, risks and complications explained in detail, all questions answered Plan discussed with: Patient ANTONIO BROWN MD Jul 30, 2024 12:32
--- NOTE | 2024-07-30 16:36 | DVHPN2 ---
Subjective Feels much better. Some pain but a lot less than yesterday Reviewed: Care Plan, H&P, Labs, Medications, Previous Orders, Radiology, Other (Consultants) Changes from previous H/P or p: No Changes Objective Vitals Vital Signs Date Time Temp Pulse Resp B/P (MAP) Pulse Ox O2 Delivery O2 Flow Rate FiO2 07/30/24 13:00 97.9 66 18 120/69 (86) 97 97.9 07/30/24 08:10 Room Air* 0 21 Intake/Output Intake and Output 07/30/24 07:00 Intake Total 1720 ml Balance 1720 ml Intake Oral 520 ml IV Total 1200 ml # Voids 4 General Appearance: Alert, Oriented X3, Cooperative, No acute distress HEENT: Atraumatic Lungs: Clear to auscultation Cardiovascular: Regular rate Abdomen: Soft, Other (Some tenderness in the right upper quadrant) Medications Current Medications Medications Dose Ordered Sig/Carissa Route Start Time Stop Time Status Last Admin Dose Admin Acetaminophen/ Hydrocodone Bitart 1 tab Q4HP PRN PO 07/28/24 14:00 Ondansetron HCl 4 mg Q4HP PRN IV 07/28/24 14:00 07/28/24 15:43 4 MG Acetaminophen 650 mg Q6HP PRN PO 07/28/24 14:00 Morphine Sulfate 2 mg Q4HPRN PRN IV 07/28/24 14:00 07/28/24 15:43 2 MG Ceftriaxone Sodium 50 ml @ 100 mls/hr DAILY@09 IV 07/30/24 09:00 07/30/24 09:45 100 MLS/HR Metronidazole 100 ml @ 100 mls/hr Q8HR IV 07/29/24 22:00 07/30/24 14:32 100 MLS/HR Potassium Chloride 20 meq/ Dextrose/Lactated Ringer's 1,010 ml @ 100 mls/hr Q10H6M IV 07/31/24 02:00 Laboratory Results Laboratory Tests 07/30/24 05:49 Chemistry Test 07/30/24 05:49 Albumin 3.9 g/dL (3.2-4.8) Calcium Level 9.7 mg/dL (8.7-10.4) Total Protein 6.3 g/dL (5.7-8.2) Lipid panel Test 07/30/24 05:49 Lipase 36 U/L (12-53) LFT Test 07/30/24 05:49 Alanine Aminotransferase (ALT) 15 U/L (7-40) Alkaline Phosphatase 72 U/L (46-116) Aspartate Amino Transferase (AST) 16 U/L (13-40) Total Bilirubin 0.7 mg/dL (0.2-1.0) Urinalysis Test 07/28/24 10:06 Urine Color Light-yellow (Yellow) Urine Clarity Clear (Clear) Urine pH 7.5 (5.0-9.0) Urine Specific [place] 1.019 (1.001-1.035) Urine Protein Trace (Negative) H Urine Ketones Negative (Negative) Urine Blood Negative /uL (Negative) Urine Nitrite Negative (Negative) Urine Bilirubin Negative (Negative) Urine Urobilinogen Normal mg/dL (Negative) Urine Leukocyte Esterase Negative /uL (Negative) Urine RBC 1 /hpf (0 - 4) Urine WBC 2 /hpf (0 - 5) Urine Squamous Epithelial Cells Few /hpf (<5) Urine Bacteria None seen /hpf (None Seen) Urine Glucose Normal mg/dL (Normal) Assessment/Plan Assessment/Plan Abdominal pain in the midepigastric area/better Unclear whether gallbladder mass and cholelithiasis or large gallbladder stone/sludge Colitis Plan: Patient will go for surgery tomorrow with Dr Simon./cholecystectomy/patient is agreeable Plan discussed with: Patient My Orders Orders - ANKUSH ERAZO MD Procedure Category Date Status Time Carcinoembryonic LAB 07/29/24 In Process Antigen 16:40 Date of Service: Jul 30, 2024 Billing Provider: ANKUSH ERAZO MD Common Visit Codes: [id number] INP/OBS CARE(MOD) ANKUSH ERAZO MD Jul 30, 2024 16:36
--- NOTE | 2024-07-30 23:03 | DVHPN2 ---
Progress Note - Dictate Date Seen: Jul 30, 2024 Medical Necessity Reason Pt with a Central, PICC or Fol: No Subjective c/o abd pain, no N/V/GIB vital signs Vital Sign Date Time Temp Pulse Resp B/P (MAP) Pulse Ox O2 Delivery O2 Flow Rate FiO2 07/30/24 21:00 97.6 72 18 119/72 (88) 100 97.6 07/30/24 08:10 Room Air* 0 21 Total Intake and Output 07/29/24 07/29/24 07/30/24 15:00 23:00 07:00 Intake Total 0 ml 500 ml 1220 ml Balance 0 ml 500 ml 1220 ml medications Current Medications Medications Dose Ordered Sig/Carissa Route Start Time Stop Time Status Last Admin Dose Admin Acetaminophen/ Hydrocodone Bitart 1 tab Q4HP PRN PO 07/28/24 14:00 Ondansetron HCl 4 mg Q4HP PRN IV 07/28/24 14:00 07/28/24 15:43 4 MG Acetaminophen 650 mg Q6HP PRN PO 07/28/24 14:00 Morphine Sulfate 2 mg Q4HPRN PRN IV 07/28/24 14:00 07/28/24 15:43 2 MG Ceftriaxone Sodium 50 ml @ 100 mls/hr DAILY@09 IV 07/30/24 09:00 07/30/24 09:45 100 MLS/HR Metronidazole 100 ml @ 100 mls/hr Q8HR IV 07/29/24 22:00 07/30/24 21:26 100 MLS/HR Potassium Chloride 20 meq/ Dextrose/Lactated Ringer's 1,010 ml @ 100 mls/hr Q10H6M IV 07/31/24 02:00 objective in no distress CVS-S1S2+ Lungs-clear Abdomen: soft, tender, nondistended, BS+ laboratory and microbiology Laboratory Tests 07/30/24 05:49 Test 07/30/24 05:49 Range/Units Serum Glucose 93 74-106 mg/dL Problem List #Abdominal pain #GB mass/sludge #Colitis on CTAP -Surgery on board. Plan on bob tomorrow -Colonoscopy as out pt to eval CTAP findings. No diarrhea/GIB -Care plan discussed with pt and RN Thank you for allowing me to participate in the care of this pt. Plan discussed with: Patient VIVEK CUADRA MD Jul 30, 2024 23:03
[2024-07-31] VITALS (9 sets, daily range): BP systolic 84–127; BP diastolic 54–78; PULSE 65–75; RESP 8–20; TEMP 97.5–98.4; O2SAT 92–100
[2024-07-31] MEDS: POTASSIUM CHLORIDE 20 MEQ in D5W/LACTATED RINGERS 1,000 ML IV SCH (01:50)
[2024-07-31] MEDS: ROCURONIUM 10MG/ML 10ML VIAL IV ONE (07:07)
[2024-07-31] MEDS: SUCCINYLCHOLINE CHLORIDE 20 MG/ML 10ML VIAL IV ONE (07:07)
[2024-07-31] MEDS ORDERED: LIDOCAINE HCL 2% TOP JELLY 5ML TOP ONE (07:14)
[2024-07-31] MEDS ORDERED: fentaNYL CITRATE 100 MCG/2 ML VL ONE (07:14)
[2024-07-31] MEDS ORDERED: LIDOCAINE 1% INJ PF 5ML AMP ONE (07:14)
[2024-07-31] MEDS ORDERED: GLYCOPYRROLATE 0.2 MG/ML 1ML VIAL ONE (07:14)
[2024-07-31] MEDS ORDERED: SODIUM CHLORIDE LOCK 10 ML ONE (07:14)
[2024-07-31] MEDS ORDERED: fentaNYL CITRATE 5 ML ONE (07:14)
[2024-07-31] MEDS ORDERED: PROPOFOL 10 MG/ML 20 ML IV ONE (07:14)
[2024-07-31] MEDS ORDERED: NEOSTIGMINE 1 MG/ML INJ (10mg/10ML VIAL) ONE (07:14)
[2024-07-31] MEDS ORDERED: MEPERIDINE HCL (50 MG/ML) 1 ML VIAL ONE (07:14)
[2024-07-31] MEDS ORDERED: MIDAZOLAM HCL 2MG/2ML 2ml VIAL (1mg/ml) ONE (07:14)
[2024-07-31] MEDS: METOCLOPRAMIDE HCL 5MG/ml INJ 2ml VIAL IV ONE (07:15)
[2024-07-31] MEDS ORDERED: MORPHINE SULFATE INJ 2 MG/ml SYRG IV PRN (07:15)
[2024-07-31] MEDS ORDERED: HYDROmorphone HCL 2 MG/ML VL/or syr IV PRN ×2 (07:15)
[2024-07-31] MEDS ORDERED: fentaNYL CITRATE 100 MCG/2 ML VL IV PRN (07:15)
[2024-07-31] MEDS: ceFAZolin 2 GM/D5W100ml 100 ML IV ONE (07:17)
[2024-07-31] MEDS ORDERED: KETAMINE 50mg/ML 1ml syringe ONE (07:20)
[2024-07-31] MEDS: LIDOCAINE W/ EPINEPHRINE 1% 20ML VIAL ONE (09:00)
[2024-07-31] MEDS: BUPIVACAINE 0.5% P/F INJ 10 ML VIAL ONE (09:00)
--- NOTE | 2024-07-31 09:36 | DVHOP ---
DATE OF SURGERY: 07/31/2024 PREOPERATIVE DIAGNOSES: Cholelithiasis, cholecystitis. POSTOPERATIVE DIAGNOSES: Cholelithiasis, cholecystitis. SURGEON: Brian Simon MD ANESTHESIA: General endotracheal. ANESTHESIOLOGIST: Dr. Nieves. PROCEDURE: Laparoscopy, laparoscopic cholecystectomy. DESCRIPTION OF PROCEDURE: Under general endotracheal anesthesia, with the patient's skin prepped and draped, a supraumbilical incision was made and Veress needle inserted by the hanging drop technique to establish pneumoperitoneum to 15 mmHg pressure by insufflation with carbon dioxide. With the abdomen fully distended, the needle was removed and replaced with a 5 mm trocar port through which a 0-degree viewing laparoscope was inserted and under direct vision, 5 and 10 mm ports inserted through the upper abdomen. The patient's laparoscopy was performed. It revealed no obvious unexpected pathology on the serosal surfaces visualized. The gallbladder was massively distended and obviously inflamed. The patient's gallbladder was placed on tension and the cystic duct and cystic artery were identified, circumferentially dissected and skeletonized traced into the hepaticocystic triangle so as to minimize the potential for inadvertent injury to the common bile duct. The cystic duct and cystic artery were divided between metallic clips close to the gallbladder. The cystic duct was exceedingly short. The common duct was mildly dilated, but appeared noninflamed. The patient's gallbladder was then resected from its liver bed by electrocautery and traction. The gallbladder was partly intrahepatic and massively distended and this resulted in small amount of denuding of the liver parenchyma, which ____ insertion of a Merlin-Louie drain underneath the right lobe of the liver, The fully mobilized gallbladder was removed from the peritoneal cavity. The subhepatic space was profusely irrigated, irrigant was aspirated. Hemostasis was meticulously accomplished, found to be complete. At the termination of procedure, there was no evidence of bleeding from either the liver bed or from the port sites. The instrumentation was withdrawn. The pneumoperitoneum was evacuated. Fascial defect closed using 0 Vicryl. Wounds approximated using Monocryl sutures, Dermabond glue and Steri-Strips. The patient remained hemodynamically throughout the procedure, left the operating room following an accurate needle and sponge counts. Brian Simon MD PF TID: [id number] RECEIPT: [id number]
[2024-07-31] MEDS: ACETAMINOPHEN IV 1000 MG/100ML (10MG/ML) IV PRN (10:07)
[2024-07-31] MEDS: ACETAMINOPHEN IV 100 ML IV ONE (10:20)
[2024-07-31] MEDS: PROCHLORPERAZINE EDISYLATE 5 MG/ML 2ML VIAL IV ONE (16:33)
[2024-07-31] MEDS: KETOROLAC TROMETH 30 MG/ML 1ML VIAL IV ONE (16:33)
[2024-07-31] MEDS: MORPHINE SULFATE 4 MG/ML SYR/VIAL IV PRN (20:40)
[2024-07-31] MEDS ORDERED: ONDANSETRON HCL 4 MG/2 ML VIAL IV ONE (21:53)
--- NOTE | 2024-07-31 23:15 | DVHPN2 ---
Subjective Update 07/31-patient is status post cholecystectomy, on imaging MRCP showed gallbladder mass/sludge ball. Patient is concerned about this finding. No comment about this mass in the op note. Patient is advised that surgery we will discuss this in following visits. She was pain at incision site, surgical drain is feeling with dark red blood. Patient is asking for additional pain control in additional nausea control. She is on clear liquid diet tolerating minimally Reviewed: Care Plan, H&P, Labs, Medications, Previous Orders, Radiology, Other (Consultants) Changes from previous H/P or p: No Changes General: Per HPI Objective Vitals Vital Signs Date Time Temp Pulse Resp B/P (MAP) Pulse Ox O2 Delivery O2 Flow Rate FiO2 07/31/24 22:00 98.4 73 18 127/72 (90) 97 98.4 07/31/24 20:00 Room Air* 0 21 Intake/Output Intake and Output 07/31/24 07:00 Intake Total 1100 ml Output Total 200 ml Balance 900 ml Intake Oral 200 ml IV Total 900 ml Output Urine Total 200 ml # Voids 4 Exam GEN: Healthy appearing, well-developed, patient is sleepy but awake and alert from auditory stimuli HEENT: NC/AT; MMM. CV: RRR, no m/r/g. LUNGS: Decreased air movement bibasilar ABD: Abdomen wrapped in abdominal wrap. Tender near incision sites. Otherwise abdomen is soft nondistended, no peritoneal signs, no acute abdomen. Surgical incisions from laparotomy are clean and without any concerning drainage EXT: skin Warm, well perfused. no rashes. No clubbing, cyanosis, or edema. NEURO: Ambulating with no limitations. No focal deficits. General Appearance: Alert, Oriented X3, Cooperative, No acute distress HEENT: Atraumatic Lungs: Clear to auscultation Cardiovascular: Regular rate Abdomen: Soft, Other (Some tenderness in the right upper quadrant) Medications Current Medications Medications Dose Ordered Sig/Carissa Route Start Time Stop Time Status Last Admin Dose Admin Ondansetron HCl 4 mg Q4HP PRN IV 07/28/24 14:00 07/28/24 15:43 4 MG Acetaminophen 650 mg Q6HP PRN PO 07/28/24 14:00 Ceftriaxone Sodium 50 ml @ 100 mls/hr DAILY@09 IV 07/30/24 09:00 07/30/24 09:45 100 MLS/HR Metronidazole 100 ml @ 100 mls/hr Q8HR IV 07/29/24 22:00 07/31/24 21:19 100 MLS/HR Potassium Chloride 20 meq/ Dextrose/Lactated Ringer's 1,010 ml @ 100 mls/hr Q10H6M IV 07/31/24 02:00 07/31/24 15:57 100 MLS/HR Morphine Sulfate 3 mg Q4HPRN PRN IV 07/31/24 16:00 07/31/24 20:40 3 MG Acetaminophen/ Hydrocodone Bitart 1 tab Q4HP PRN PO 07/31/24 16:00 Laboratory Results Laboratory Tests 07/30/24 05:49 Urinalysis Test 07/28/24 10:06 Urine Color Light-yellow (Yellow) Urine Clarity Clear (Clear) Urine pH 7.5 (5.0-9.0) Urine Specific [place] 1.019 (1.001-1.035) Urine Protein Trace (Negative) H Urine Ketones Negative (Negative) Urine Blood Negative /uL (Negative) Urine Nitrite Negative (Negative) Urine Bilirubin Negative (Negative) Urine Urobilinogen Normal mg/dL (Negative) Urine Leukocyte Esterase Negative /uL (Negative) Urine RBC 1 /hpf (0 - 4) Urine WBC 2 /hpf (0 - 5) Urine Squamous Epithelial Cells Few /hpf (<5) Urine Bacteria None seen /hpf (None Seen) Urine Glucose Normal mg/dL (Normal) Labs and/or images reviewed: Labs reviewed by me, Image(s) reviewed by me Assessment/Plan Assessment/Plan update - - 07/31-patient is status post cholecystectomy, on imaging MRCP showed gallbladder mass/sludge ball. Patient is concerned about this finding. No comment about this mass in the op note. Patient is advised that surgery we will discuss this in following visits. She was pain at incision site, surgical drain is feeling with dark red blood. Patient is asking for additional pain control in additional nausea control. She is on clear liquid diet tolerating minimally #P.o. intolerance #Intractable abdominal pain #Cholelithiasis # gallbladder mass?on imaging. - presenting with acute onset abdominal pain associated with nausea and vomiting, p.o. intolerance; Ibrahim patient has epigastrium tender to palpation, abdomen is nonacute - no leukocytosis, no neutrophilia, afebrile vital signs are stable - Lipase negative, - RUQ ultrasound is consistent with gallbladder stones and cholelithiasis; ( 7.2 cm heterogeneous mildly echogenic nodular structure filling the gallbladder. This may represent inspissated gallbladder sludge versus mass. 1.3 cm gallstone in the gallbladder neck. The common duct is mildly prominent measuring 8 mm.) - CT abdomen without con: Mucosal thickening of the transverse and left colon, possible colitis. Probable cholelithiasis. - MRCP 07/29, concern for mass filling most of gallbladder which could be neoplasm versus sludge ball. Possible gallstone or calcified component of mass in the gallbladder neck, possible cystic component and the gallbladder fundus. Common bile duct at upper limit of normal and no filling defects or stricture. - status post laparoscopic cholecystectomy 07/31 -clear liquid diets -IV antibiotics -surgery following -P.r.n. analgesia, p.r.n. antiemetics Diet CLD DVT prophylaxis Lovenox GI prophylaxis Protonix IV Med surge Plan discussed with: Patient My Orders Orders - RANDALL GREENE MD Procedure Category Date Status Time Hydrocodone-Acet PHA 07/31/24 In Process 10/325mg Tab ([place] 16:00 * [place] Barrel Ribs CONS 07/31/24 Transmitted Consult Morphine Sulfate PHA 07/31/24 In Process Injection 16:00 Date of Service: Jul 31, 2024 Billing Provider: RANDALL GREENE MD Common Visit Codes: [id number] INP/OBS CARE(HIGH) RANDALL GREENE MD Jul 31, 2024 23:15
[2024-08-01] VITALS (8 sets, daily range): BP systolic 87–117; BP diastolic 50–72; PULSE 69–86; RESP 16–18; TEMP 98–99.4; O2SAT 95–99
[2024-08-01] MEDS: HYDROcodone-ACET 10/325MG TAB PO PRN (02:17)
[2024-08-01 07:42] LABS: Basophils # (auto) 0 10 ^3/uL (0-0.2); Basophils % (auto) 0.4 % (0.0-2.0); Eosinophils # (auto) 0 10 ^3/uL (0-0.8); Eosinophils % (auto) 0.3 % (0.0-7.0); Hematocrit 31.5 % (36.0-46.0); Hemoglobin 11.1 g/dL (12.2-16.2); Lymphocytes # (auto) 2.2 10 ^3/uL (0.4-5.4); Lymphocytes % (auto) 27.3 % (10.0-50.0); Mean Corpuscular Hgb Conc. 35.1 g/dL (32.0-36.0); Mean Corpuscular Volume 88.3 fL (80.0-100.0); Monocytes # (auto) 0.6 10 ^3/uL (0-1.3); Monocytes % (auto) 7.2 % (0.0-12.0); Neutrophils # (auto) 5.3 10 ^3/uL (1.6-8.6); Neutrophils % (auto) 64.8 % (37.0-80.0); Nucleated Red Blood Cells % 0.1 %; Platelet Count (auto) 198 10^3/uL (140-450); Red Blood Cells 3.56 10^6/uL (4.0-5.20); Red Cell Distribution Width 14.2 % (11.8-14.3); White Blood Cell 8.2 10^3/uL (4.4-10.8)
[2024-08-01 07:48] LABS: Alanine Aminotransferase 26 U/L (7-40); Albumin 3.4 g/dL (3.2-4.8); Alkaline Phosphatase 67 U/L (46-116); Aspartate Aminotransferase 36 U/L (13-40); Chloride 107 mmol/L (98-107); Potassium 3.8 mmol/L (3.5-5.1)
[2024-08-01 07:54] LABS: Carbon Dioxide 24 mmol/L (20-31)
[2024-08-01 07:59] LABS: BUN/Creatinine Ratio 11.1 (10.0-20.0); Bilirubin, Total 0.7 mg/dL (0.2-1.0); Blood Urea Nitrogen 7 mg/dL (9-23); Glucose 96 mg/dL (74-106)
[2024-08-01 08:01] LABS: Total Protein 5.4 g/dL (5.7-8.2)
[2024-08-01 08:18] LABS: Anion Gap 7 (5-15); Sodium 138 mmol/L (136-145)
--- NOTE | 2024-08-01 11:15 | DVHPN2 ---
Progress Note Date Seen: Aug 01, 2024 Medical Necessity Reason Pt with a Central, PICC or Fol: No Objective vital signs Vital Sign Date Time Temp Pulse Resp B/P (MAP) Pulse Ox O2 Delivery O2 Flow Rate FiO2 08/01/24 09:31 99.4 73 16 104/67 (79) 99 99.4 08/01/24 08:00 Room Air* 0 21 Total Intake and Output 07/31/24 07/31/24 08/01/24 15:00 23:00 07:00 Intake Total 200 ml 525 ml 1700 ml Output Total 360 ml 450 ml Balance -160 ml 75 ml 1700 ml medications Current Medications Medications Dose Ordered Sig/Carissa Route Start Time Stop Time Status Last Admin Dose Admin Ondansetron HCl 4 mg Q4HP PRN IV 07/28/24 14:00 07/28/24 15:43 4 MG Acetaminophen 650 mg Q6HP PRN PO 07/28/24 14:00 Ceftriaxone Sodium 50 ml @ 100 mls/hr DAILY@09 IV 07/30/24 09:00 08/01/24 09:30 100 MLS/HR Metronidazole 100 ml @ 100 mls/hr Q8HR IV 07/29/24 22:00 08/01/24 05:04 100 MLS/HR Potassium Chloride 20 meq/ Dextrose/Lactated Ringer's 1,010 ml @ 100 mls/hr Q10H6M IV 07/31/24 02:00 08/01/24 02:13 100 MLS/HR Morphine Sulfate 3 mg Q4HPRN PRN IV 07/31/24 16:00 07/31/24 20:40 3 MG Acetaminophen/ Hydrocodone Bitart 1 tab Q4HP PRN PO 07/31/24 16:00 08/01/24 02:17 1 TAB laboratory and microbiology Laboratory Tests 08/01/24 05:51 Test 08/01/24 05:51 Range/Units Serum Glucose 96 74-106 mg/dL Problem List/Assessment/Plan Problem List/Assessment/Plan 07/30/24 PATIENT REQUESTED A SECOND SURGICAL OPINION: SHE IS A 54 YEAR OLD FEMALE PREVIOUSLY HEALTHY PRESENTING WITH WHAT IS THE THIRD EPISODE OF RIGHT UPPER QUADRANT PAIN, HAS A LARGE "MASS LIKE" STRUCTURE FILLING HER GALLBLADDER. EXPLAINED TO PATIENT THAT IT COULD BE A MALIGNANCY IN WHICH CASE SHE WOULD HAVE TO HAVE A DEFINITIVE OPERATION ELSEWHERE, HOWEVER HER LABS ARE NORMAL THE LIVER IS WITHOUT EVIDENCE OF METS OR MASS PENETRATING THE gb WALL, WILL PROCEED WITH LAPAROSCOPIC POSSIBLY OPEN CHOLECYSTECTOMY. OPERATION, risks and complications explained in detail, all questions answered 08/01/24 patient's two sisters at bedside, one will be staying with patient, patient is afebrile, normotensive, wounds clean and well approximated, drainage non bilious, operative findings explained , LFT's OK,l she may be discharged, instructions given Plan discussed with: Patient, Other ANTONIO BROWN MD Aug 01, 2024 11:15
[2024-08-01] MEDS ORDERED: ZOFR4T PO (13:52)
[2024-08-01] MEDS ORDERED: HYDR-4798 PO (13:52)
--- NOTE | 2024-08-01 16:53 | DVHPN2 ---
Progress Note - Dictate Date Seen: Aug 01, 2024 Medical Necessity Reason Pt with a Central, PICC or Fol: No Subjective c/o abd pain, no N/V/GIB vital signs Vital Sign Date Time Temp Pulse Resp B/P (MAP) Pulse Ox O2 Delivery O2 Flow Rate FiO2 08/01/24 13:00 98.9 86 16 110/66 (81) 97 98.9 08/01/24 08:00 Room Air* 0 21 Total Intake and Output 07/31/24 07/31/24 08/01/24 15:00 23:00 07:00 Intake Total 200 ml 525 ml 1700 ml Output Total 360 ml 450 ml Balance -160 ml 75 ml 1700 ml medications Current Medications Medications Dose Ordered Sig/Carissa Route Start Time Stop Time Status Last Admin Dose Admin Ondansetron HCl 4 mg Q4HP PRN IV 07/28/24 14:00 07/28/24 15:43 4 MG Acetaminophen 650 mg Q6HP PRN PO 07/28/24 14:00 Ceftriaxone Sodium 50 ml @ 100 mls/hr DAILY@09 IV 07/30/24 09:00 08/01/24 09:30 100 MLS/HR Metronidazole 100 ml @ 100 mls/hr Q8HR IV 07/29/24 22:00 08/01/24 13:22 100 MLS/HR Potassium Chloride 20 meq/ Dextrose/Lactated Ringer's 1,010 ml @ 100 mls/hr Q10H6M IV 07/31/24 02:00 08/01/24 02:13 100 MLS/HR Morphine Sulfate 3 mg Q4HPRN PRN IV 07/31/24 16:00 07/31/24 20:40 3 MG Acetaminophen/ Hydrocodone Bitart 1 tab Q4HP PRN PO 07/31/24 16:00 08/01/24 13:38 1 TAB objective in no distress CVS-S1S2+ Lungs-clear Abdomen: soft, tender, nondistended, BS+ laboratory and microbiology Laboratory Tests 08/01/24 05:51 Test 08/01/24 05:51 Range/Units Serum Glucose 96 74-106 mg/dL Problem List #Abdominal pain #GB mass/sludge #Colitis on CTAP -Surgery on board. Plan on bob -Colonoscopy as out pt to eval CTAP findings. No diarrhea/GIB -Care plan discussed with pt and RN Thank you for allowing me to participate in the care of this pt. Dietary Evaluation Review Comments: encourage low fat diet when pt can eat. Expected Outcomes/Goals: gradual weight loss Plan discussed with: Patient VIVEK CUADRA MD Aug 01, 2024 16:53
--- NOTE | 2024-08-01 17:58 | DVHDS2 ---
Discharge Summary Date of Admission Jul 28, 2024 at 13:48 Date of Discharge: Aug 01, 2024 Labs/Diagnostic Data: Laboratory Results Test 08/01/24 05:51 07/30/24 05:49 07/29/24 17:20 07/29/24 05:11 White Blood Count 8.2 10^3/uL (4.4-10.8) Red Blood Count 3.56 10^6/uL (4.0-5.20) Hemoglobin 11.1 g/dL (12.2-16.2) Hematocrit 31.5 % (36.0-46.0) Mean Corpuscular Volume 88.3 fL (80.0-100.0) Mean Corpuscular Hemoglobin 31.0 pg (28.0-32.0) Mean Corpuscular Hemoglobin Concent 35.1 g/dL (32.0-36.0) Red Cell Distribution Width 14.2 % (11.8-14.3) Platelet Count 198 10^3/uL (140-450) Mean Platelet Volume 8.7 fL (6.9-10.8) Neutrophils (%) (Auto) 64.8 % (37.0-80.0) Lymphocytes (%) (Auto) 27.3 % (10.0-50.0) Monocytes (%) (Auto) 7.2 % (0.0-12.0) Eosinophils (%) (Auto) 0.3 % (0.0-7.0) Basophils (%) (Auto) 0.4 % (0.0-2.0) Neutrophils # (Auto) 5.3 10 ^3/uL (1.6-8.6) Lymphocytes # (Auto) 2.2 10 ^3/uL (0.4-5.4) Monocytes # (Auto) 0.6 10 ^3/uL (0-1.3) Eosinophils # (Auto) 0 10 ^3/uL (0-0.8) Basophils # (Auto) 0 10 ^3/uL (0-0.2) Nucleated Red Blood Cells 0.1 % Sodium Level 138 mmol/L (136-145) Potassium Level 3.8 mmol/L (3.5-5.1) Chloride Level 107 mmol/L (98-107) Carbon Dioxide Level 24 mmol/L (20-31) Anion Gap 7 (5-15) Blood Urea Nitrogen 7 mg/dL (9-23) Creatinine 0.63 mg/dL (0.550-1.02) Glomerular Filtration Rate Calc 105 mL/min (>90) BUN/Creatinine Ratio 11.1 (10.0-20.0) Serum Glucose 96 mg/dL (74-106) Calcium Level 9.0 mg/dL (8.7-10.4) Total Bilirubin 0.7 mg/dL (0.2-1.0) Aspartate Amino Transferase (AST) 36 U/L (13-40) Alanine Aminotransferase (ALT) 26 U/L (7-40) Alkaline Phosphatase 67 U/L (46-116) Total Protein 5.4 g/dL (5.7-8.2) Albumin 3.4 g/dL (3.2-4.8) Amylase Level 61 U/L (30-118) Lipase 36 U/L (12-53) Carcinoembryonic Antigen 1.10 ng/mL (<=5.0) Erythrocyte Sedimentation Rate 10 mm/hr (0-20) Prothrombin Time 10.9 sec (9.3-11.8) Prothrombin Time INR 1.03 (0.9-1.15) Activated Partial Thromboplast Time 29.3 SEC (24.5-34.5) C-Reactive Protein High Sensitivity 0.89 mg/dL (<1.0) Test 07/28/24 10:10 07/28/24 10:06 Beta HCG, Quantitative 4.1 mIU/mL (1.5-4.2) Urine Color Light-yellow (Yellow) Urine Clarity Clear (Clear) Urine pH 7.5 (5.0-9.0) Urine Specific [place] 1.019 (1.001-1.035) Urine Protein Trace (Negative) Urine Ketones Negative (Negative) Urine Blood Negative /uL (Negative) Urine Nitrite Negative (Negative) Urine Bilirubin Negative (Negative) Urine Urobilinogen Normal mg/dL (Negative) Urine Leukocyte Esterase Negative /uL (Negative) Urine RBC 1 /hpf (0 - 4) Urine WBC 2 /hpf (0 - 5) Urine Squamous Epithelial Cells Few /hpf (<5) Urine Bacteria None seen /hpf (None Seen) Urine Glucose Normal mg/dL (Normal) Other Laboratory Tests 08/01/24 05:51 Brief Hx & Hospital Course: 54y/o F with no significant PMHx p/w epigastric pain, n/v, po intolerance x1 day. since yesterday patient developed sudden onset abdominal pain with po intolerance. she has multiple n/v emesis events, she is unable to count, but denies hematemesis. abdominal pain is unremitting, 10/10, sharp, constant with colicky worsening events; pain does radiate to the back on initial evaluation, she has RUQ/epigastrium TTP. VS stable. on admit labs no leukocytosis, no neutrophilia, afebrile vital signs are stable Lipase negative, RUQ ultrasound is consistent with gallbladder stones and cholelithiasis ( 7.2 cm heterogeneous mildly echogenic nodular structure filling the gallbladder. This may represent inspissated gallbladder sludge versus mass. 1.3 cm gallstone in the gallbladder neck. The common duct is mildly prominent measuring [address] abdomen without con: Mucosal thickening of the transverse and left colon, possible colitis. Probable cholelithiasis. MRCP 07/29, concern for mass filling most of gallbladder which could be neoplasm versus sludge ball. Possible gallstone or calcified component of mass in the gallbladder neck, possible cystic component and the gallbladder fundus. Common bile duct at upper limit of normal and no filling defects or stricture. surgery consulted for symptomatic cholelithiasis. she is taken to OR for [facility] on 07/31. s/p surgery she is improving well, given short course of iv antibiotics. on 08/01, she is stable, tolerating PO, pain controlled by PO analgesia. cleared by surgery. stable for discharge with plan below. diagnosis: symptomatic cholelithiasis, PO intolerance resolved, nausea/vomiting resolved, gallbladder mass; s/p cholecystectomy. discharge plan: - for pain, as needed otc tylenol > otc ibuprofen > rx norco 10 - full liquid diet for 1 week then advance as tolerated -zofran as needed for nausea - follow-up with surgery. keep abdominal binder and surgery drain in. - follow-up with PCP for discharge review - ID clinic follow-up for symptom check and po tolerance check Visitation and planning required 35 minutes Condition at Discharge: Fair Final Diagnosis/Problems List symptomatic cholelithiasis; s/p cholecystectomy. Discharge Disposition: Home Discharge Instruct/Medications Diet: See Comment Diet comment: full liquid Activity: No Restrictions, As Tolerated Follow Up/Referral: PCP, Surgery Discharge Statement: "Patient was advised to return to the ER or call 911 if any headaches, dizziness, shortness of breath, chest pain, abdominal pain, bleeding, fevers, or worsening of medical condition. Patient was counseled about treatment plan, medications, possible side effects, patientverbalized understanding. All questions were answered to the best of my ability. This discharge took greater then 30 minutes in planning, reviewing documentation, counseling the patient, and discussing with other team members." ASSESSMENT ASSESSMENT Assessment symptomatic cholelithiasis; s/p cholecystectomy. Date of Service: Aug 01, 2024 Billing Provider: RANDALL GREENE MD Common Visit Codes: [id number] DISCH DAY >30min RANDALL GREENE MD Aug 01, 2024 17:58
== END 2024-08-01 21:54 | disposition home or self-care (01) | DRG 263 ==
LOC: ER 09:47 → OVERFLOW 13:48 → WEST WING 14:55
PROVIDERS: ADMIT Student in an Organized Health Care Education/Training Program; ATTEND Student in an Organized Health Care Education/Training Program
PROC: 0FT44ZZ Resection of Gallbladder, Percutaneous Endoscopic Approach (ICD-10-PCS; principal; 2024-07-31 08:16)
DX: K80.00 Calculus of gallbladder with acute cholecystitis without obstruction (principal); R71.0 Precipitous drop in hematocrit; K52.9 Noninfective gastroenteritis and colitis, unspecified
CPT/HCPCS: 36415; 74177; 74181; 76705; 80053; 81001; 82105; 82150; 82378; 83690; 84702; 85025; 85610; 85652; 85730; 86141; 86850; 86900; 86901; 87070; 87075; 87205; 93005; 96361; 96374; 99291; G0378; J0131; J0330; J1885; J2250; J2405; J2704; J3490